=== PATIENT | male | born 1965 | race Caucasian/White ===

== ENCOUNTER 2019-01-06 09:48 | Observation (INO) | payer SELFPAY ==
[~2019-01-06] VITALS: Ht 167.6 cm; Wt 95.5 kg
[2019-01-06 10:23] LABS: HEMATOCRIT 43.7 % (42.0-54.0); HEMOGLOBIN 16.1 g/dL (13.5-17.5); LYMPHOCYTES 8.4 % (15-50); MCH 32.7 pg (26.0-34.0); MCHC 36.8 g/dL (31.0-37.0); MCV 88.8 fL (80.0-100.0); MEAN PLATELET VOLUME 11.2 fL (7.4-10.4); PLATELET COUNT 193 10x3/uL (130-400); RBC 4.92 10x6/uL (4.20-6.10); RDW 13.9 % (11.5-14.5); WBC 10.3 10x3/uL (4.8-10.8)
[2019-01-06 10:34] LABS: APTT 23.7 SECONDS (22.8-39.4); INR 1.06 (0.85-1.17); PROTIME 13.3 SECONDS (11.6-15.0)
[2019-01-06 10:45] LABS: ALBUMIN 3.8 g/dL (3.4-5.0); ALKALINE PHOSPHATASE 94 U/L (46-116); ALT (SGPT) 35 U/L (10-68); BILIRUBIN - TOTAL 0.59 mg/dL (0.2-1.3); CALC OSMOLALITY 286 mosm/kg (275-300); CALCIUM 8.5 mg/dL (8.5-10.1); CARBON DIOXIDE 24.3 mmol/L (21.0-32.0); CHLORIDE - SERUM 105 mmol/L (98-107); CREATININE - SERUM 0.8 mg/dL (0.6-1.3); GLUCOSE 188 mg/dL (74-106); POTASSIUM - SERUM 3.4 mmol/L (3.5-5.1); PROTEIN - SERUM 7.6 g/dL (6.4-8.2); SODIUM 140 mmol/L (136-145); UREA NITROGEN 22 mg/dL (7-18); eGFR NON AFRICAN AMERICAN > 90 mL/min (90-120)
[2019-01-06 10:52] LABS: CKMB 0.9 U/L (0.0-3.6); CREATINE KINASE 79 UL (21-232); TROPONIN-I 0.021 ng/mL (0.000-0.060)
[2019-01-06 10:53] LABS: PRO BNP 9 pg/mL (0-125)
[2019-01-06 11:00] VITALS: BP 125/69
--- NOTE | 2019-01-06 11:36 | NUR ---
ORDERED LABS RESULTED AT [facility] FOLLOWING LAB SEND-OUT. RESULTS FOLLOWS THB 19.9, O2HB 81.7, COHB 17.4, MET HB 0.5. TREATING PROVIDER NOTIFIED.
[2019-01-06 13:00] VITALS: BP 112/67
--- NOTE | 2019-01-06 16:00 | NUR ---
PT GIVEN URINAL REQUESTED. DENIES ANY FUTHER NEEDS.
[2019-01-06 16:31] VITALS: BP 116/61
--- NOTE | 2019-01-06 18:03 | NUR ---
PT GIVEN DINNER TRAY PER DIETARY ORDERS. PT SITTING UPRIGHT IN BED. PT ALERT AND ORIENTED. RESPIRATIONS EVEN AND UNLABORED. CALL LIGHT IN REACH. PT DENIES ANY NEEDS. WILL CONTINUE TO MONITOR. PT AWARE HE IS BEING ADMITTED TO [facility], AWAITING BED ASSIGNMENT.
--- NOTE | 2019-01-06 19:12 | NUR ---
HAND-OFF REPORT GIVEN TO NURY HAAS.
[2019-01-06 20:00] VITALS: BP 120/62
--- NOTE | 2019-01-06 20:31 | NUR ---
ADMITTD AT THIS TIME DENIES SOB DENIES PAIN LCTA SKIN WARM AND DRY NO NOTED DISTRESS PT SPEAKS VERY LITTLE TELUGU BUT ENOUGH TO COMUNICATE NEEDS CALL LIGHTG PROVIDED AND BED IN LOW POSITION....SR X2
--- NOTE | 2019-01-06 21:12 | NUR ---
REFUSING SCD BUT IT IS NOTED THAT HE IS UP AMBULATING IN ROOM
[2019-01-06 23:18] VITALS: Ht 167.6 cm; Wt 95.5 kg
[2019-01-07] VITALS: BP 122/60
[2019-01-07 04:00] VITALS: BP 118/62
[2019-01-07 06:21] LABS: BASOPHILS 0.4 % (0-2); EOSINOPHILS 0.7 % (0-7); HEMATOCRIT 43.2 % (42.0-54.0); HEMOGLOBIN 15.1 g/dL (13.5-17.5); IMMATURE GRANULOCYTES 0.2 % (0-5); LYMPHOCYTES 24.9 % (15-50); MCH 31.7 pg (26.0-34.0); MEAN PLATELET VOLUME 11.6 fL (7.4-10.4); MONOCYTES 6.5 % (2-11); NEUTROPHILS 67.3 % (40-80); PLATELET COUNT 201 10x3/uL (130-400); RBC 4.76 10x6/uL (4.20-6.10); WBC 8.5 10x3/uL (4.8-10.8)
[2019-01-07 06:48] LABS: MCV 90.8 fL (80.0-100.0)
[2019-01-07 06:59] LABS: ALBUMIN 3.5 g/dL (3.4-5.0); ALKALINE PHOSPHATASE 86 U/L (46-116); ALT (SGPT) 32 U/L (10-68); BILIRUBIN - TOTAL 0.86 mg/dL (0.2-1.3); CALC OSMOLALITY 283 mosm/kg (275-300); CALCIUM 8.3 mg/dL (8.5-10.1); CARBON DIOXIDE 26.6 mmol/L (21.0-32.0); CHLORIDE - SERUM 106 mmol/L (98-107); CREATININE - SERUM 0.8 mg/dL (0.6-1.3); POTASSIUM - SERUM 3.6 mmol/L (3.5-5.1); PROTEIN - SERUM 7.1 g/dL (6.4-8.2); SODIUM 140 mmol/L (136-145); UREA NITROGEN 21 mg/dL (7-18); eGFR NON AFRICAN AMERICAN > 90 mL/min (90-120)
[2019-01-07 07:06] LABS: GLUCOSE 131 mg/dL (74-106)
[2019-01-07 08:00] VITALS: BP 120/72
[2019-01-07 12:00] VITALS: BP 111/69
--- NOTE | 2019-01-07 16:11 | NUR ---
RIGHT AC 18G IV DC'D WITH CATH INTACT. DISCHARGE INSTRUCTIONS GIVEN TO PT AND CHART COPY SIGNED. TELEMETRY DC'D. PT REFUSED TO STAY IN ROOM AND WAIT FOR WC. PT WALKED DOWN AND PT'S RIDE IS OUT FRONT PER PT.
--- NOTE | 2019-01-07 17:37 | MORECARE ---
CASE MANAGEMENT DISCHARGE SUMMARY PATIENT: WHITNEY PEDRO UNIT: [id number] ADM DATE: 01/06/19 AGE: 53 : 61 SEX: M ROOM/BED: D.2138 AUTHOR: MARCO RILEY PHYSICIAN: REFERRING PHYSICIAN: RADHA HERNANDEZ MD DATE OF SERVICE: 01/07/19 Discharge Plan Patient Name: WHITNEY PEDRO [facility] [facility] 1965 Planned Disposition: Home Anticipated Discharge Date: 01/07/19 Discharge Date: 01/07/2019 Expected LOS: 1 Initial Reviewer: [id number] Initial Review Date: 01/07/2019 Generated: 01/07/19 6:37 pm Patient Name: WHITNEY PEDRO Page [id number] at 1737 All edits/amendments must be made on the electronic document DICTATION DATE: 01/07/191735 MEAT WASHER: PANFILO 01/07/191735 RPT#: [id number] DC DATE:01/07/19 STATUS: DIS IN [facility] [address] [place] [address] END OF REPORT
== END 2019-01-07 16:13 | disposition home or self-care (01) ==
LOC: D.ER 09:48 → D.EDHOLD 15:29 → OBSVTIME 16:02 → D.M2 19:38
PROVIDERS: Family Medicine; ADMIT Internal Medicine Nephrology; ATTEND Internal Medicine Nephrology
DX: T58.11XA Toxic effect of carbon monoxide from utility gas, accidental (unintentional), initial encounter (principal); Y92.010 Kitchen of single-family (private) house as the place of occurrence of the external cause; R51 Headache